=== PATIENT | female | born 1985 | race Asian ===

== ENCOUNTER → 2019-02-16 | Outpatient (REF) | payer OTHER ==
[~2019-02-16] MED LIST: ADVI200C5 PO; ANUS2.5C2 PR; COLA100C5 PO; FISH500C PO; MOM30SS PO; PRENTAB40 PO; TYLE167L PO
[2019-02-16 18:34] LABS: HCG, SERUM QUANTITATIVE 182037 MIU/ML
[2019-02-16 19:21] LABS: HEMATOCRIT 42.2 % (36.0-47.0); MEAN CORPUSCULAR HEMOGLOBIN 26.7 pg (27.0-33.0); MEAN CORPUSCULAR HGB CONC 33.2 g/dl (32.0-36.5); MEAN CORPUSCULAR VOLUME 80.5 fl (80.0-96.0); PLATELET COUNT, AUTOMATED 302 10^3/uL (150-450); RED BLOOD COUNT 5.24 10^6/uL (4.00-5.40); WHITE BLOOD COUNT 11.7 10^3/uL (4.0-10.0)
[2019-02-17 09:58] LABS: RUBELLA IgG QUALITATIVE IMMUNE (IMMUNE)
[2019-02-17 10:27] LABS: HEPATITIS C VIRUS ABY INDEX 0.1 INDEX (<0.8); HIV 1&2 SCREEN CENTAUR NEGATIVE (NEGATIVE)
== END ==
LOC: M LAB REF 17:00
PROVIDERS: ATTEND Nurse Practitioner Women's Health
DX: Z32.01 Encounter for pregnancy test, result positive (principal); O36.80X0 Pregnancy with inconclusive fetal viability, not applicable or unspecified

== ENCOUNTER → 2019-08-24 | Outpatient (REF) | payer OTHER | LOC: M LAB REF 13:09 | PROVIDERS: ATTEND Nurse Practitioner Women's Health | DX: Z34.83 Encounter for supervision of other normal pregnancy, third trimester (principal) ==

== ENCOUNTER 2019-09-10 11:24 | Inpatient (IN) | payer OTHER ==
[~2019-09-10] VITALS: Ht 154.9 cm; Wt 62.6 kg
[2019-09-10] VITALS (13 sets, daily range): BP systolic 143–198; BP diastolic 74–98
[~2019-09-10 11:24] MED LIST changes: +PRENATAL VITAMINS CHEWABLE TABLET PO SCH
[2019-09-10] MEDS ORDERED: LABETALOL HCL 100 MG/20 ML VIAL IV STA (11:37)
[2019-09-10] MEDS ORDERED: LABETALOL 100 MG TAB PO ONE (11:45)
[2019-09-10] MEDS ORDERED: LABE20TAB PO (11:49)
[2019-09-10] MEDS ORDERED: MAG Sulf (L&D) 4 GM/100 ML 4 GM in IV 1 EA IV ONE (12:00)
[2019-09-10 12:17] LABS: BASO % 0.2 % (0.0-1.0); EOS # 0.2 10^3/uL (0.0-0.5); EOS % 2.2 % (0.0-3.0); HEMATOCRIT 32.1 % (36.0-47.0); HEMOGLOBIN 10.3 g/dl (12.0-15.5); LYMPH # 1.6 10^3/uL (1.5-5.0); LYMPH % 15.9 % (24.0-44.0); MEAN CORPUSCULAR HEMOGLOBIN 26.7 pg (27.0-33.0); MEAN CORPUSCULAR HGB CONC 32.1 g/dl (32.0-36.5); MEAN CORPUSCULAR VOLUME 83.2 fl (80.0-96.0); MONO # 0.6 10^3/uL (0.0-0.8); MONO % 6.1 % (0.0-5.0); NEUTROPHILS # 7.5 10^3/uL (1.5-8.5); NEUTROPHILS % 74.9 % (36.0-66.0); PLATELET COUNT, AUTOMATED 206 10^3/uL (150-450); RED BLOOD COUNT 3.86 10^6/uL (4.00-5.40); WHITE BLOOD COUNT 10.1 10^3/uL (4.0-10.0)
[2019-09-10] MEDS ORDERED: IBUP200C29 PO (12:20)
[2019-09-10] MEDS: MAG Sulf (OBGYN) 20GM/500ML 20,000 MG in IV 1 EA IV SCH ×2 (12:35→22:50)
[2019-09-10 12:45] LABS: ALBUMIN 2.8 GM/DL (3.2-5.2); ALT/SGPT 39 U/L (12-78); BILIRUBIN,DIRECT < 0.1 MG/DL (0.0-0.2); BILIRUBIN,TOTAL 0.3 MG/DL (0.2-1.0); BLOOD UREA NITROGEN 11 MG/DL (7-18); CALCIUM LEVEL 8.8 MG/DL (8.5-10.1); CARBON DIOXIDE LEVEL 26 MEQ/L (21-32); CHLORIDE LEVEL 106 MEQ/L (98-107); CREATININE FOR GFR 0.61 MG/DL (0.55-1.30); GLOMERULAR FILTRATION RATE > 60.0 (>60); GLUCOSE, FASTING 95 MG/DL (70-100); MAGNESIUM LEVEL 1.7 MG/DL (1.8-2.4); POTASSIUM SERUM 3.9 MEQ/L (3.5-5.1); SODIUM LEVEL 140 MEQ/L (136-145); TOTAL PROTEIN 6.3 GM/DL (6.4-8.2); URIC ACID 6.1 MG/DL (2.6-6.0)
[2019-09-10] MEDS ORDERED: CALCIUM GLUCONATE 1,000 MG in D5W MINI-BAG PLUS 100 ML IV PRN (13:00)
[2019-09-10] MEDS ORDERED: ACETAMINOPHEN 500 MG TAB PO ONE (13:00)
[2019-09-10] MEDS ORDERED: LABETALOL HCL 100 MG/20 ML VIAL IV ONE ×2 (13:00→14:50)
[2019-09-10] MEDS ORDERED: LABETALOL HCL 100 MG/20 ML VIAL IV SCH ×2 (13:15→19:45)
[2019-09-10] MEDS ORDERED: ACETAMINOPHEN 500 MG TAB PO PRN (13:30)
--- NOTE | 2019-09-10 13:44 | ECGEPIP ---
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
[2019-09-10] MEDS ORDERED: LR 1,000 ML IV SCH (16:56)
[2019-09-10] MEDS: LABETALOL 200 MG TAB PO SCH (20:36)
[2019-09-10] MEDS ORDERED: LABETALOL 200 MG TAB PO SCH (21:00)
[2019-09-10] MEDS ORDERED: MAGNESIUM SULFATE 4% INJ 20GM/500ML (40MG/ML) (J3475) As Ordered ONE (22:47)
[2019-09-11] VITALS (16 sets, daily range): BP systolic 104–160; BP diastolic 59–87
--- NOTE | 2019-09-11 07:01 | IPNPDOC ---
Text Note Date of Service The patient was seen on 09/11/19. NOTE PP day 4 Received add'l dose of labetalol 20mg IV last evening along with increased dose of PO to 400mg BID given at 2100. BP since then max 157/89. Denies headache or visual disturbances (other than watery left eye). No epigastric pain Adequate I/O Consider d/c this afternoon. VS,Fishbone, I+O VS, Fishbone, I+O Laboratory Tests 09/10/19 11:58 Vital Signs Date Time Temp Pulse Resp B/P (MAP) Pulse Ox O2 Delivery O2 Flow Rate FiO2 09/11/19 06:28 98.4 82 16 150/83 (105) 09/10/19 14:50 Room Air 09/10/19 14:13 99 I&O- Last 24 Hours up to 6 AM 09/11/19 06:00 Intake Total 1908 ml Output Total 3275 ml Balance -1367 ml Ellie Venegas CNM Sep 11, 2019 07:01
[2019-09-11] MEDS: LABETALOL 200 MG TAB PO SCH (09:02)
[2019-09-11] MEDS: MAG Sulf (OBGYN) 20GM/500ML 20,000 MG in IV 1 EA IV SCH (09:13)
--- NOTE | 2019-09-11 12:52 | DS.PDOC ---
Discharge Summary General Date of Admission Sep 10, 2019 at 12:53 Date of Discharge 09/11/19 Discharge Summary PROCEDURES PERFORMED DURING STAY: None. ADMITTING DIAGNOSES: 1. 3 day post vaginal delivery. 2. Preeclampsia, severe range hypertension with severe features DISCHARGE DIAGNOSES: 1. Preeclampsia. COMPLICATIONS/CHIEF COMPLAINT: Pre-Eclampsia. HISTORY OF PRESENT ILLNESS: [id number], pt of [facility]. Delivered in [place] 09/07/19. complicated by gestational HTN/preeclampsia without severe features. Her blood pressure was controlled with labetalol 100mg BID. 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 HOSPITAL COURSE: Magnesium sulfate per protocol, IV labetalol and increased dose of oral labetalol have resulted in excellent control of her hypertension. She has no complaints of headache or visual disturbances today. Mag sulfate di scontinued after 24 hours. DISCHARGE MEDICATIONS: Please see below. ALLERGIES: Please see below. PHYSICAL EXAMINATION ON DISCHARGE: VITAL SIGNS: Please see below. GENERAL: NAD HEENT: WNL NECK: Supple CARDIOVASCULAR EXAMINATION: HRR, 116/64 RESPIRATORY EXAMINATION: Clear, unlabored ABDOMINAL EXAMINATION: active BS EXTREMITIES: Equal strength and motion SKIN: Intact NEUROLOGICAL EXAMINATION: Grossly intact PSYCHIATRIC EXAMINATION: Appropriate LABORATORY DATA: Please see below. PROGNOSIS: Good ACTIVITY: As tolerated. Rest at home this weekend DIET: Regular DISCHARGE PLAN: Discharge home per consult Dr Garcia. Routine precautions. Increase labetalol dose to 400mg BID. Rec f/u with provider in office next week DISPOSITION: Home. DISCHARGE INSTRUCTIONS: 1. Rest. 2. Labetalol as directed 3. F/U with provider next week DISCHARGE CONDITION: Stable. Vital Signs/I&Os Vital Signs Date Time Temp Pulse Resp B/P (MAP) Pulse Ox O2 Delivery O2 Flow Rate FiO2 09/11/19 12:02 78 18 116/64 (81) 09/11/19 10:00 98.1 09/10/19 14:50 Room Air 09/10/19 14:13 99 I&O- Last 24 Hours up to 6 AM 09/11/19 05:59 Intake Total 1783 ml Output Total 3275 ml Balance -1492 ml Discharge Medications Scheduled Labetalol HCl (Labetalol HCl) 200 Mg Tablet, 200 MG PO BID, (Reported) Pnv No.95/Ferrous Fum/Folic AC ( Formula Tablet) 1 Tab Tab, 1 TAB PO DAILY, (Reported) Scheduled PRN Ibuprofen (Ibuprofen) 200 Mg Capsule, 600 MG PO QID PRN for PAIN, (Reported) Allergies Coded Allergies: guaifenesin (Verified Allergy, Intermediate, HIVES, 09/11/19) PT FEELS ATTRIBUTED TO Ellie Cesar CNM Sep 11, 2019 12:52
[2019-09-11] MEDS ORDERED: LABE20TAB PO (12:56)
== END 2019-09-11 13:47 | disposition home or self-care (01) | DRG 776 ==
LOC: M ED 11:24 → M ED INP 12:53 → M ED 14:18 → M LDI 15:08
PROVIDERS: ADMIT Obstetrics & Gynecology; ATTEND Advanced Practice Midwife
DX: O14.15 Severe pre-eclampsia, complicating the puerperium (principal); Z79.899 Other long term (current) drug therapy; Z88.8 Allergy status to other drugs, medicaments and biological substances

== ENCOUNTER → 2019-09-21 | Outpatient (REF) | payer OTHER ==
[~2019-09-21] MED LIST changes: +AMLO5TAB6 PO; +CHLO25TA PO; +IBUP200C29 PO; +LABE20TAB PO; -PRENATAL VITAMINS CHEWABLE TABLET PO SCH; +SELF1KIT MC
[2019-09-21 13:00] LABS: ALBUMIN 3.7 GM/DL (3.2-5.2); ALT/SGPT 56 U/L (12-78); BILIRUBIN,TOTAL 0.6 MG/DL (0.2-1.0); BLOOD UREA NITROGEN 23 MG/DL (7-18); CALCIUM LEVEL 9.8 MG/DL (8.5-10.1); CARBON DIOXIDE LEVEL 28 MEQ/L (21-32); CHLORIDE LEVEL 99 MEQ/L (98-107); CREATININE FOR GFR 0.74 MG/DL (0.55-1.30); GLOMERULAR FILTRATION RATE > 60.0 (>60); GLUCOSE, FASTING 96 MG/DL (70-100); MAGNESIUM LEVEL 2.4 MG/DL (1.8-2.4); POTASSIUM SERUM 3.8 MEQ/L (3.5-5.1); SODIUM LEVEL 136 MEQ/L (136-145); TOTAL PROTEIN 8.7 GM/DL (6.4-8.2)
== END ==
LOC: MERGE 10:15 → M SFHCPLAZ 10:15
PROVIDERS: ATTEND Internal Medicine
DX: O16.5 Unspecified maternal hypertension, complicating the puerperium (principal)
CPT/HCPCS: 36415; 80053; 83735; 84156; G0463

== ENCOUNTER → 2020-04-17 | Outpatient (REF) | payer OTHER ==
[~2020-04-17] MED LIST changes: +AMLO1TAB24 PO; -AMLO5TAB6 PO
[2020-04-17 13:58] LABS: CHOLESTEROL RISK RATIO 4.225 (<5)
[2020-04-17 14:14] LABS: HEMOGLOBIN A1c 5.8 %
== END ==
LOC: M SFHCPLAZ 10:54
PROVIDERS: ATTEND Family Medicine
DX: Z00.00 Encounter for general adult medical examination without abnormal findings (principal)
CPT/HCPCS: 36415; 80061; 83036; G0463

== ENCOUNTER → 2020-12-26 | Outpatient (REF) | payer OTHER ==
[2020-12-26 16:38] LABS: ALBUMIN 4.1 GM/DL (3.2-5.2); ALT/SGPT 44 U/L (12-78); BILIRUBIN,TOTAL 0.3 MG/DL (0.2-1.0); BLOOD UREA NITROGEN 11 MG/DL (7-18); CALCIUM LEVEL 9.5 MG/DL (8.5-10.1); CARBON DIOXIDE LEVEL 28 MEQ/L (21-32); CHLORIDE LEVEL 104 MEQ/L (98-107); CREATININE FOR GFR 0.63 MG/DL (0.55-1.30); GLOMERULAR FILTRATION RATE > 60.0 (>60); GLUCOSE, FASTING 115 MG/DL (70-100); POTASSIUM SERUM 3.9 MEQ/L (3.5-5.1); SODIUM LEVEL 139 MEQ/L (136-145); TOTAL PROTEIN 7.8 GM/DL (6.4-8.2)
[2020-12-26 16:47] LABS: HEMOGLOBIN A1c 5.6 %
== END ==
LOC: M SFHCPLAZ 13:43
PROVIDERS: ATTEND Family Medicine
DX: R80.9 Proteinuria, unspecified (principal); I10 Essential (primary) hypertension; R73.03 Prediabetes
CPT/HCPCS: 36415; 80053; 81002; 83036; 84443; G0463

== ENCOUNTER → 2021-03-30 | Outpatient (REF) | payer OTHER ==
[2021-03-30 13:50] LABS: HEMOGLOBIN A1c 5.5 %
== END ==
LOC: M PLALAB 09:50
PROVIDERS: ATTEND Student in an Organized Health Care Education/Training Program
DX: R73.03 Prediabetes (principal)

== ENCOUNTER → 2022-11-01 | Outpatient (CLI) | payer OTHER ==
[2022-11-01 17:44] LABS: HEMATOCRIT 39.8 % (36.0-47.0); HEMOGLOBIN 12.7 g/dl (12.0-15.5); MEAN CORPUSCULAR HEMOGLOBIN 25.9 pg (27.0-33.0); MEAN CORPUSCULAR HGB CONC 31.9 g/dl (32.0-36.5); MEAN CORPUSCULAR VOLUME 81.1 fl (80.0-96.0); PLATELET COUNT, AUTOMATED 237 10^3/uL (150-450); RED BLOOD COUNT 4.91 10^6/uL (4.00-5.40); WHITE BLOOD COUNT 6.4 10^3/uL (4.0-10.0)
[2022-11-01 18:06] LABS: HEMOGLOBIN A1c 5.6 % (4.0-6.0)
[2022-11-01 18:22] LABS: THYROID STIMULATING HORMONE 0.951 uIU/ML (0.55-4.78)
[2022-11-01 18:23] LABS: ALBUMIN 4.1 G/DL (3.2-5.2); ALKALINE PHOSPHATASE 105 U/L (46-116); ALT/SGPT 47 U/L (7.0-40); AST/SGOT 31 U/L (<34); BILIRUBIN,TOTAL 0.4 MG/DL (0.3-1.2); BLOOD UREA NITROGEN 11 MG/DL (9-23); CALCIUM LEVEL 9.1 MG/DL (8.5-10.1); CARBON DIOXIDE LEVEL 25 MMOL/L (20-31); CHLORIDE LEVEL 104 MMOL/L (98-107); CREATININE FOR GFR 0.64 MG/DL (0.55-1.30); FREE T4 1.22 NG/DL (0.89-1.76); GLOMERULAR FILTRATION RATE > 60.0 (>60); GLUCOSE, FASTING 147 MG/DL (60-100); POTASSIUM SERUM 3.7 MMOL/L (3.5-5.1); SODIUM LEVEL 139 MMOL/L (136-145); TOTAL PROTEIN 7.3 G/DL (5.7-8.2)
== END ==
LOC: M PLALAB 15:18
PROVIDERS: ATTEND Student in an Organized Health Care Education/Training Program
DX: R73.03 Prediabetes (principal); E04.9 Nontoxic goiter, unspecified; I10 Essential (primary) hypertension

== ENCOUNTER → 2022-11-18 | Outpatient (CLI) | payer OTHER | LOC: M WHC 13:19 | PROVIDERS: ATTEND Student in an Organized Health Care Education/Training Program | DX: E04.1 Nontoxic single thyroid nodule (principal) ==

== ENCOUNTER → 2023-12-30 | Outpatient (CLI) | payer OTHER, BC ==
[2023-12-30 14:05] LABS: BASO % 0.4 % (0.0-1.0); EOS # 0.2 10^3/uL (0.0-0.5); EOS % 3.2 % (0.0-3.0); HEMATOCRIT 41.7 % (36.0-47.0); HEMOGLOBIN 13.6 g/dl (12.0-15.5); LYMPH % 26.3 % (24.0-44.0); MEAN CORPUSCULAR HEMOGLOBIN 26.8 pg (27.0-33.0); MEAN CORPUSCULAR HGB CONC 32.6 g/dl (32.0-36.5); MEAN CORPUSCULAR VOLUME 82.1 fl (80.0-96.0); MONO # 0.3 10^3/uL (0.0-0.8); MONO % 3.7 % (2.0-8.0); NEUTROPHILS % 66.1 % (36.0-66.0); PLATELET COUNT, AUTOMATED 273 10^3/uL (150-450); RED BLOOD COUNT 5.08 10^6/uL (4.00-5.40); WHITE BLOOD COUNT 7.6 10^3/uL (4.0-10.0)
[2023-12-30 14:32] LABS: HEMOGLOBIN A1c 5.7 % (4.0-6.0)
[2023-12-30 14:38] LABS: ALBUMIN 4.1 G/DL (3.2-5.2); ALKALINE PHOSPHATASE 79 U/L (46-116); ALT/SGPT 38 U/L (7.0-40); AST/SGOT 18 U/L (<34); BILIRUBIN,TOTAL 0.5 MG/DL (0.3-1.2); BLOOD UREA NITROGEN 11 MG/DL (9-23); CALCIUM LEVEL 9.2 MG/DL (8.5-10.1); CARBON DIOXIDE LEVEL 27 MMOL/L (20-31); CHLORIDE LEVEL 107 MMOL/L (98-107); CHOLESTEROL LEVEL 176 MG/DL (<200); CHOLESTEROL RISK RATIO 5.11 (<5); CREATININE FOR GFR 0.67 MG/DL (0.55-1.30); GLOMERULAR FILTRATION RATE > 60.0 (>60); GLUCOSE, FASTING 94 MG/DL (60-100); HDL CHOLESTEROL 34.4 MG/DL (>40); LDL CHOLESTEROL 121.4 MG/DL (<100); NON-HDL-C 141.6 MG/DL; POTASSIUM SERUM 4.1 MMOL/L (3.5-5.1); SODIUM LEVEL 139 MMOL/L (136-145); TOTAL PROTEIN 7.5 G/DL (5.7-8.2); TRIGLYCERIDES LEVEL 101 MG/DL (<150)
[2023-12-30 14:40] LABS: FREE T4 1.23 NG/DL (0.89-1.76)
[2023-12-30 14:41] LABS: THYROID STIMULATING HORMONE 1.437 uIU/ML (0.55-4.78)
== END ==
LOC: M PLALAB 09:44
PROVIDERS: ATTEND Student in an Organized Health Care Education/Training Program
DX: I10 Essential (primary) hypertension (principal); Z13.220 Encounter for screening for lipoid disorders; E04.9 Nontoxic goiter, unspecified; Z13.1 Encounter for screening for diabetes mellitus

== ENCOUNTER → 2024-01-12 | Outpatient (CLI) | payer BC | LOC: M RAD 07:17 | PROVIDERS: ATTEND Student in an Organized Health Care Education/Training Program | DX: E04.1 Nontoxic single thyroid nodule (principal) ==

== ENCOUNTER → 2024-06-02 | Outpatient (CLI) | payer OTHER, BC ==
[2024-06-02 10:19] LABS: FREE T4 1.25 NG/DL (0.89-1.76)
[2024-06-02 10:20] LABS: THYROID STIMULATING HORMONE 1.723 uIU/ML (0.55-4.78)
== END ==
LOC: M PLALAB 07:58
DX: E04.2 Nontoxic multinodular goiter (principal)

== ENCOUNTER 2024-09-14 10:52 | Day surgery (SDC) | payer BC, OTHER ==
[~2024-09-14] VITALS: Ht 154.9 cm; Wt 56.5 kg
[~2024-09-14 10:52] MED LIST changes: +CLAR10CA3 PO; +LISI20TA33 PO; +NORE1TAB7 PO
[2024-09-14] MEDS ORDERED: LIDOCAINE 2% 100MG/5ML SDV (FOR ANES.) As Ordered ONE (11:21)
[2024-09-14] MEDS ORDERED: propofoL 200 MG/20 ML VIAL As Ordered ONE (11:21)
[2024-09-14] MEDS ORDERED: ONDANSETRON 4MG 2ML VIAL As Ordered ONE (11:21)
[2024-09-14] MEDS ORDERED: fentaNYL 100 MCG/2 ML INJECTION As Ordered ONE (11:23)
[2024-09-14] MEDS ORDERED: MIDAZOLAM INJ 2MG/2ML VIAL As Ordered ONE (11:23)
[2024-09-14] MEDS ORDERED: ROCURONIUM BROMIDE 50MG/5ML VIAL As Ordered ONE (12:12)
[2024-09-14] MEDS ORDERED: SUGAMMADEX SODIUM 500 MG/5 ML VIAL (BRIDION) As Ordered ONE (12:13)
[2024-09-14] MEDS: ceFAZolin SOD 2 GM in IV 1 EA IV ONE (12:29)
[2024-09-14] MEDS ORDERED: ACETAMINOPHEN 1000MG/100ML IV BAG As Ordered ONE (12:36)
[2024-09-14] MEDS ORDERED: ONDANSETRON 4MG 2ML VIAL IV PRN (13:55)
[2024-09-14] MEDS ORDERED: MORPHINE 2 MG/ML 1ML VIAL IV PRN (13:55)
[2024-09-14] MEDS ORDERED: oxyCODONE 5MG TAB PO PRN (13:55)
[2024-09-14] MEDS ORDERED: fentaNYL 100 MCG/2 ML INJECTION IV PRN (13:55)
[2024-09-14 14:25] VITALS: BP 155/78; TEMP 97.6; O2SAT 100
== END 2024-09-14 15:05 | disposition home or self-care (01) ==
LOC: M SDC 10:52
PROVIDERS: ATTEND Surgery
DX: D17.1 Benign lipomatous neoplasm of skin and subcutaneous tissue of trunk (principal); Z88.8 Allergy status to other drugs, medicaments and biological substances; Z79.899 Other long term (current) drug therapy
CPT/HCPCS: 21931; 81025; 88304; C9290; J0131; J0665; J0690; J1100; J2250; J2405; J3010

== ENCOUNTER → 2024-10-14 | Outpatient (CLI) | payer BC, OTHER ==
[2024-10-14 18:23] LABS: ALBUMIN 4.1 G/DL (3.2-5.2); ALKALINE PHOSPHATASE 55 U/L (35-104); ALT/SGPT 23 U/L (7.0-40); AST/SGOT 15 U/L (<34); BILIRUBIN,TOTAL 0.3 MG/DL (0.3-1.2); BLOOD UREA NITROGEN 13 MG/DL (9-23); CARBON DIOXIDE LEVEL 26 MMOL/L (20-31); CHLORIDE LEVEL 105 MMOL/L (98-107); CHOLESTEROL LEVEL 182 MG/DL (<200); GLOMERULAR FILTRATION RATE > 60.0 (>58); GLUCOSE, FASTING 81 MG/DL (60-100); HDL CHOLESTEROL 41.3 MG/DL (>40); LDL CHOLESTEROL 121.5 MG/DL (<100); NON-HDL-C 140.7 MG/DL; POTASSIUM SERUM 4.2 MMOL/L (3.5-5.1); SODIUM LEVEL 142 MMOL/L (136-145); TRIGLYCERIDES LEVEL 96 MG/DL (<150)
[2024-10-14 18:44] LABS: HEMOGLOBIN A1c 5.6 % (4.0-6.0)
== END ==
LOC: M PLALAB 15:54
DX: R73.03 Prediabetes (principal)

== ENCOUNTER → 2024-10-14 | Outpatient (REF) | payer OTHER | LOC: M SFHCPLAZ 15:56 | DX: Z53.9 Procedure and treatment not carried out, unspecified reason (principal) ==

== ENCOUNTER → 2024-11-26 | Outpatient (CLI) | payer BC, OTHER | LOC: M WHC 15:19 | DX: Z00.00 Encounter for general adult medical examination without abnormal findings (principal); Z12.31 Encounter for screening mammogram for malignant neoplasm of breast; R92.333 Mammographic heterogeneous density, bilateral breasts ==

== ENCOUNTER → 2024-12-01 | Outpatient (CLI) | payer BC, OTHER | LOC: M WHC 10:37 | DX: Z53.21 Procedure and treatment not carried out due to patient leaving prior to being seen by health care provider (principal) ==

== ENCOUNTER → 2024-12-27 | Outpatient (CLI) | payer BC, OTHER | LOC: M WHC 14:51 | DX: Z12.31 Encounter for screening mammogram for malignant neoplasm of breast (principal) | CPT/HCPCS: 76641; 77065; G0279 ==

== ENCOUNTER → 2025-01-24 | Outpatient (CLI) | payer BC, OTHER | LOC: M RAD 16:09 | PROVIDERS: ATTEND Student in an Organized Health Care Education/Training Program | DX: E04.2 Nontoxic multinodular goiter (principal) ==

== ENCOUNTER → 2025-06-13 | Outpatient (CLI) | payer BC, OTHER | LOC: M WHC 17:54 | DX: R92.8 Other abnormal and inconclusive findings on diagnostic imaging of breast (principal); Z53.9 Procedure and treatment not carried out, unspecified reason ==

== ENCOUNTER → 2025-08-10 | Outpatient (CLI) | payer OTHER | LOC: M WHC 14:22 | PROVIDERS: ATTEND Student in an Organized Health Care Education/Training Program | DX: R92.8 Other abnormal and inconclusive findings on diagnostic imaging of breast (principal); R92.333 Mammographic heterogeneous density, bilateral breasts | CPT/HCPCS: 77065; G0279 ==